=== PATIENT | male | born 1955 | race Caucasian/White ===

== ENCOUNTER → 2016-04-08 | Outpatient (CLI) | payer OTHER ==
[~2016-04-08] VITALS: Ht 177.8 cm; Wt 93.9 kg
[~2016-04-08] MED LIST: AMLO5TAB2 PO; ASPI325T PO; BISO5TAB5 PO; CLOP75TA2 PO; FENO145T PO; FOLI1TAB2 PO; LIDOCAINE 2% INJ 100 MG/5 ML SDV (FOR ANES.) As Ordered ONE; LISI-538 PO; NITR4TASL SL; NS 1,000 ML IV SCH; PANT40TA2 PO; PRAV10TA PO; PROPOFOL 200 MG/20 ML VIAL As Ordered ONE; RANI1TAB6 PO
--- NOTE | 2016-04-08 12:39 | ROOR ---
Patient Name: Girish Fletcher Procedure Date: 04/08/2016 12:26 PM Date of : 1955 Age: 60 Room: [facility] Gender: Male Note Status: Finalized Procedure: Upper GI endoscopy Indications: Epigastric abdominal pain, Heartburn Providers: Stephane CENTENO MD Referring MD: DAI PEDERSON MD Requesting Provider: Medicines: Monitored Anesthesia Care Complications: No immediate complications. Procedure: Pre-Anesthesia Assessment: - The heart rate, respiratory rate, oxygen saturations, blood pressure, adequacy of pulmonary ventilation, and response to care were monitored throughout the procedure. The Endoscope was introduced through the mouth, and advanced to the second part of duodenum. The upper GI endoscopy was accomplished without difficulty. The patient tolerated the procedure well. Findings: The Z-line was variable and was found 38 cm from the incisors. This was biopsied with a cold forceps for histology. A small hiatal hernia was present. The entire examined stomach was normal. The examined duodenum was normal. Impression: - Z-line variable, 38 cm from the incisors. Biopsied. - Small hiatal hernia. - Normal stomach. - Normal examined duodenum. Recommendation: - Continue present medications. - Observe patient's clinical course. - if ranitidine ineffective, consider advancing regimen to PPI (protonix)--let us know. - Telephone endoscopist for pathology results in 2 weeks. Stephane Centeno MD Stephane CENTENO MD 04/08/2016 12:39:19 PM This report has been signed electronically. Number of Addenda: 0 Note Initiated On: 04/08/2016 12:26 PM Estimated Blood Loss: Estimated blood loss: none.
--- NOTE | 2016-04-08 13:00 | ROOR ---
Patient Name: Girish Fletcher Procedure Date: 04/08/2016 12:27 PM Date of : 1955 Age: 60 Room: [facility] Gender: Male Note Status: Finalized Procedure: Colonoscopy Indications: Screening for colorectal malignant neoplasm, Incidental constipation noted Providers: Stephane CENTENO MD Referring MD: DAI PEDERSON MD Requesting Provider: Medicines: Monitored Anesthesia Care Complications: No immediate complications. Procedure: Pre-Anesthesia Assessment: - The heart rate, respiratory rate, oxygen saturations, blood pressure, adequacy of pulmonary ventilation, and response to care were monitored throughout the procedure. The Colonoscope was introduced through the anus and advanced to the cecum, identified by appendiceal orifice and ileocecal valve. The colonoscopy was performed without difficulty. The patient tolerated the procedure well. The quality of the bowel preparation was good. Findings: The perianal and digital rectal examinations were normal. (Exam: Complete, Prep: Good or Excellent.) Two sessile polyps were found in the sigmoid colon and hepatic flexure. The polyps were 4 to 5 mm in size. These polyps were removed with a cold snare. Resection and retrieval were complete. Multiple medium-mouthed diverticula were found in the sigmoid colon. Internal hemorrhoids were found during retroflexion. The hemorrhoids were medium-sized. The exam was otherwise without abnormality on direct and retroflexion views. Impression: - Two 4 to 5 mm polyps in the sigmoid colon and at the hepatic flexure, removed with a cold snare. Resected and retrieved. - Moderate diverticulosis in the sigmoid colon. - Internal hemorrhoids. - The examination was otherwise normal on direct and retroflexion views. Recommendation: - Miralax 1 capful (17 grams) in 8 ounces of water twice a day (every day) for constipation.. - Telephone endoscopist for pathology results in 2 weeks. - If the pathology report reveals adenomatous tissue, then repeat the colonoscopy for surveillance in 3 years. - If the pathology report indicates hyperplastic polyp, then repeat colonoscopy for screening purposes in 10 years. - Resume Plavix (clopidogrel) at prior dose tomorrow. Stephane Centeno MD Stephane CENTENO MD 04/08/2016 12:59:52 PM This report has been signed electronically. Number of Addenda: 0 Note Initiated On: 04/08/2016 12:27 PM Estimated Blood Loss: Estimated blood loss: none.
[2016-04-08 13:20] VITALS: BP 120/69
== END | disposition home or self-care (01) ==
LOC: M OPP 11:29
PROVIDERS: ATTEND Internal Medicine Gastroenterology
DX: Z12.11 Encounter for screening for malignant neoplasm of colon (principal); D12.5 Benign neoplasm of sigmoid colon; D12.3 Benign neoplasm of transverse colon; K57.30 Diverticulosis of large intestine without perforation or abscess without bleeding; K64.8 Other hemorrhoids; R12 Heartburn; K22.8 Other specified diseases of esophagus; K44.9 Diaphragmatic hernia without obstruction or gangrene; I25.10 Atherosclerotic heart disease of native coronary artery without angina pectoris; I10 Essential (primary) hypertension; J44.9 Chronic obstructive pulmonary disease, unspecified; E78.5 Hyperlipidemia, unspecified; F41.9 Anxiety disorder, unspecified; F33.9 Major depressive disorder, recurrent, unspecified; R06.83 Snoring; Z95.5 Presence of coronary angioplasty implant and graft; F17.200 Nicotine dependence, unspecified, uncomplicated; F17.228 Nicotine dependence, chewing tobacco, with other nicotine-induced disorders; Z79.899 Other long term (current) drug therapy; Z79.82 Long term (current) use of aspirin; Z88.8 Allergy status to other drugs, medicaments and biological substances

== ENCOUNTER → 2017-12-13 | Outpatient (CLI) | payer OTHER | LOC: M RAD 08:34 | DX: R16.2 Hepatomegaly with splenomegaly, not elsewhere classified (principal) | CPT/HCPCS: 76700 ==

== ENCOUNTER → 2018-01-16 | Outpatient (CLI) | payer OTHER ==
[~2018-01-16] MED LIST changes: -AMLO5TAB2 PO; +AMLO5TAB6 PO; +ASPI1TAB PO; -FENO145T PO; +FENO145T13 PO; +FLOM0.4C39 PO; +FLUTISP NARES; +FOLI1TAB11 PO; -FOLI1TAB2 PO; -LIDOCAINE 2% INJ 100 MG/5 ML SDV (FOR ANES.) As Ordered ONE; +MORP1TAB19 PO; +MOTR200T44 PO; +NEUR300C PO; -NS 1,000 ML IV SCH; -PANT40TA2 PO; +PANT40TA3 PO; -PRAV10TA PO; +PRAV10TA4 PO; +PROBCAP14 PO; -PROPOFOL 200 MG/20 ML VIAL As Ordered ONE
--- NOTE | 2018-01-17 15:49 | REP ---
PET/CT: History: Initial staging lung cancer. Report of recent CT study describes a 4.2 cm right upper lobe mass with mediastinal lymphadenopathy. TECHNIQUE: 54 minutes following the intravenous injection of a 7.7 mCi dose of F-18 FDG, three-dimensional PET scintigraphy is acquired from the skull base to the proximal thighs. Triplanar noncontrast CT scanning is acquired through the same anatomic range for attenuation correction, and image registration with scan parameters optimized to minimize radiation exposure to the patient. PET scintigraphy and CT datasets were fused and displayed on a workstation with multiplanar and projection display capability. PET/CT Findings: The patient's right upper lobe perihilar mass is hypermetabolic. Maximum standard uptake value is 19.0 within this 5 cm mass. There is hypermetabolic right hilar, right paratracheal and anterior mediastinal lymphadenopathy. Maximum standard uptake value in the right paratracheal adenopathy 19.5, in the anterior mediastinal adenopathy, 18.8, and in the left superior mediastinal lymphadenopathy, 17.5. There is hypermetabolic left supraclavicular lymphadenopathy with maximum standard uptake value 17.2. There is some postobstructive pneumonia in the right upper lobe and some patchy increased densities are seen in the right lower lobe. There is a right middle lobe hypermetabolic nodule with maximum standard uptake value of 7.7. This measures 0.4 cm. Whether this represents a metastasis or more post obstructive pneumonia is difficult to say. There is a nonhypermetabolic 7 mm nodule in the left lower lobe adjacent to the major fissure. Maximum standard uptake value is 1.9. No other pulmonary parenchymal hypermetabolic uptake is seen. Head and neck soft tissues are unremarkable except for the left supraclavicular lymphadenopathy. Paranasal sinus disease is seen affecting the right maxillary sinus. There is a small hypermetabolic focus in the left upper lobe of the lung just posterior and lateral to the sternum. Maximum standard uptake value in this is 6.1. This appears to be a 1.2 cm peripheral pulmonary nodule. No abnormal adrenal uptake is seen. No abnormal hepatic or splenic uptake is observed. No abnormal abdominal or pelvic hypermetabolic uptake is seen. There is unfortunately multifocal skeletal metastatic hypermetabolic uptake. Metastatic skeletal sites include the left first sacral segment where there is a large destructive radiolucent lesion. Maximum standard uptake value in this is 28. The lesion measures 3.7 cm in diameter. There is a hypermetabolic radiolucent metastasis, which is smaller in the left iliac bone. Maximum standard uptake value 17.7. A left posterior iliac lesion has maximum standard uptake value of 1.6. There is a lesion at the tip of the right iliac crest laterally which has maximum standard uptake value of 21.7 and a small radiolucent lesion. Lastly, there is mildly hypermetabolic uptake in the peritrochanteric soft tissues at the right hip which may reflect tendonitis. Maximum standard uptake value here is 6.0. Impression: Findings compatible with primary bronchogenic malignancy right upper lobe with right hilar, mediastinal, and left supraclavicular lymphadenopathy. Postobstructive changes are seen in the right upper lobe. There is a nodular hypermetabolic focus in the right middle lobe, which may be metastatic or postobstructive. There is metastatic hypermetabolic skeletal uptake at the pelvis and sacrum. Electronically Signed by Jimi Echavarria MD 01/17/2018 05:31 P
== END ==
LOC: M PLARAD 11:59
PROVIDERS: ATTEND Family Medicine
DX: C34.90 Malignant neoplasm of unspecified part of unspecified bronchus or lung (principal)
CPT/HCPCS: 78815; A9552